=== PATIENT | female | born 1965 | race Caucasian/White ===

== ENCOUNTER 2020-02-21 08:59 | Outpatient (CLI) | payer BC, SELFPAY ==
--- NOTE | ~2020-02-21 | XR_ITS ---
XR tibia fibula RT 2V 02/21/2020 09:28 INDICATION: Right leg swelling for 2 years PROCEDURE: 2 views right tibia/fibula COMPARISON: No prior studies for comparison. FINDINGS: Fracture, dislocation or subluxation is not identified. The soft tissues appear within norm al limits. No foreign bodies are identified. IMPRESSION: 1: NO SIGNIFICANT BONE OR JOINT ABNORMALITY IDENTIFIED. Reviewed, dictated and finalized at location A.
--- NOTE | ~2020-02-21 | XR_ITS ---
XR foot RT min 3V 02/21/2020 09:29 Indication: Right foot swelling for 2 years Procedure: 4 views right foot Comparison: No prior studies for comparison. Findings: No acute fracture, subluxation or dislocation. Mild osteoarthritis first MTP joint. Lisfran c joint intact. No focal soft tissue abnormality. Small degenerative calcaneal enthesophytes. No fore ign bodies. Impression: 1: No significant bone or joint abnormality. Reviewed, dictated and finalized at location A. Impression: 1: No significant bone or joint abnormality.
== END 2020-02-21 09:00 | disposition home or self-care (01) ==
LOC: ANHLAB 09:07
PROVIDERS: PCP Nurse Practitioner Family; Visit Provider Nurse Practitioner Family
DX: R22.41 Localized swelling, mass and lump, right lower limb (principal)
CPT/HCPCS: 73590; 73630

== ENCOUNTER 2021-06-18 19:50 | Emergency (ER) | payer BC, SELFPAY ==
--- NOTE | ~2021-06-18 | XR_ITS ---
EXAMINATION: XR chest 2V DATE: 06/18/2021 21:26 INDICATION: 2 days of cough and worsening shortness of breath TECHNIQUE: PA and lateral views of the chest were obtained. COMPARISON: None FINDINGS: Opacity in the right middle lobe which is suspicious for pneumonia. Small right pleural effusion. Pos toperative change of prior left mastectomy with breast implant and associated left axillary lymph nod e dissection. Left lung is clear. No pneumothorax or left-sided pleural effusion. Cardiomediastinal s ilhouette is normal. Likely cholecystectomy clips in the upper abdomen. IMPRESSION: 1. Opacities in the right middle lobe concerning for pneumonia with small right pleural effusion. Reviewed, dictated and finalized at location A.
--- NOTE | ~2021-06-18 | CT_ITS ---
EXAMINATION: CT abdomen pelvis w con INDICATION: Upper abdominal pain, elevated liver function tests TECHNIQUE: Computed tomographic images of the abdomen and pelvis were obtained after the administrati on of 100 cc of Omnipaque 350 intravenous contrast. The dose-length product (DLP) was 489.78 mGy-cm. Automated exposure control and iterative reconstruction technique were employed. COMPARISON: None available FINDINGS: There are small pleural effusions, right greater than left. Cardiomegaly is noted. There is mild atelectasis of the lung bases. The gallbladder is surgically absent. The spleen, pancreas, and adrenal glands are normal. Cysts of the kidneys measure up to 1.5 cm on the left. No pathologically e nlarged abdominal or pelvic lymph nodes are identified. There is no free intraperitoneal gas or evide nce of bowel obstruction. There is mild inflammatory change adjacent to the third portion of the duod enum. A small volume of ascites tracks there is mild lumbar spondylosis. The appendix is normal. IMPRESSION: 1. Small amount of fluid adjacent to the duodenum possibly reflecting duodenitis. 2. Cardiomegaly. 3. Small pleural effusions. Reviewed, dictated and finalized at location A. IMPRESSION: 1. Small amount of fluid adjacent to the duodenum possibly reflecting duodeniti s. 2. Cardiomegaly. 3. Small pleural effusions.
--- NOTE | 2021-06-18 21:05 | ECG_ITS ---
Measurements Intervals [place] Rate: 106 P: 12 [place]: 132 QRS: -24 QRSD: 98 T: 82 QT: 349 QTc: 465 Interpretive Statements SINUS TACHYCARDIA POSSIBLE LEFT ATRIAL ENLARGEMENT CANNOT RULE OUT SEPTAL INFARCT, AGE INDETERMINATE BORDERLINE ST-T WAVE ABNORMALITY- LAT/HIGH LAT LEADS ABNORMAL ECG Electronically Signed On 06-19-2021 6:08:41 CDT by John Kitchen D.O.
[2021-06-18 21:06] VITALS: BP 138/82; PULSE 108; RESP 18; TEMP 36.7; O2SAT 99
[2021-06-18 21:39] LABS: Anion Gap 8 mmol/L (8-16); Blood Urea Nitrogen 18 mg/dL (7-17); Calcium 9.7 mg/dL (8.4-10.2); Carbon Dioxide 23 mmol/L (22-30); Chloride 107 mmol/L (98-107); Estimated Glomerular Filt Rate > 60; Glucose 107 mg/dL (65-110); Potassium 4.3 mmol/L (3.4-5.0); Sodium 138 mmol/L (137-145)
[2021-06-18 22:12] LABS: Basophils Absolute Auto 0.1 K/mm3 (0.0-0.1); Basophils Percent Auto 0.8 % (0.2-1.2); Eosinophils Absolute Auto 0.2 K/mm3 (0-0.3); Eosinophils Percent Auto 2.7 % (0-4.4); Hematocrit 36.1 % (37.0-47.0); Hemoglobin 11.4 g/dL (12.0-15.0); Immature Granulocyte Absolute 0.01 K/mm3 (0.00-0.031); Immature Granulocyte Percent A 0.1 % (0-0.5); Lymphocytes Absolute Auto 2.56 K/mm3 (0.9-3.2); Lymphocytes Percent Auto 34.9 % (18.3-44.2); Mean Corpuscular HGB Conc 31.6 g/dl (32-36); Mean Corpuscular Hemoglobin 29.7 pg (26-34); Mean Platelet Volume 10.4 fl (7.4-10.4); Monocytes Absolute Auto 0.7 K/mm3 (0.1-0.6); Monocytes Percent Auto 9.3 % (2.6-8.5); Neutrophils Absolute Auto 3.8 K/mm3 (1.3-6.7); Neutrophils Percent Auto 52.2 % (45.5-73.1); Platelet Count Result 321 k/mm3 (150-375); Red Blood Count 3.84 M/mm3 (4.2-5.4); White Blood Count 7.3 K/mm3 (4.5-10.0)
[2021-06-18 23:52] VITALS: BP 140/74; PULSE 100; RESP 18; O2SAT 97
[2021-06-19 01:53] VITALS: BP 130/84; PULSE 104; RESP 26; O2SAT 100
[2021-06-19 02:45] LABS: Alanine Aminotransferase 167 U/L (4-35); Albumin Level 3.7 g/dL (3.5-5.1); Alkaline Phosphatase 174 U/L (38-126); Aspartate Amino Transferase 141 U/L (14-36); Bilirubin,Total 0.4 mg/dL (0.2-1.3); Lipase 103 U/L (23-300)
[2021-06-19 02:48] VITALS: BP 133/94; PULSE 99; RESP 29
[2021-06-19] MEDS: BENZONATATE 100 MG CAPSULE 200 MG PO (02:49)
[2021-06-19] MEDS: IPRATROPIUM BR 0.02% INH SOLN 0.5 MG/2.5 ML VIAL INHALATION (02:52)
[2021-06-19] MEDS: ALBUTEROL SULFATE NEB 2.5 MG/0.5 ML INH 5 MG INHALATION (02:52)
--- NOTE | 2021-06-19 03:42 | PC.NURSE ---
Pt states her breathing has improved since treatment, but states she is still experiencing upper abdominal/epigastric pain. EDP made aware, no new orders at this time.
[2021-06-19 03:43] VITALS: BP 123/85; PULSE 102; RESP 28; O2SAT 100
[2021-06-19 04:58] VITALS: PULSE 96; RESP 27
--- NOTE | 2021-06-19 05:15 | PC.NURSE ---
Pt to CT via stretcher at this time.
[2021-06-19 05:23] VITALS: BP 136/93; PULSE 106; RESP 25; O2SAT 100
--- NOTE | 2021-06-19 05:56 | ED.GENADULT ---
HPI - General Adult General Chief complaint: Shortness of Breath/Dyspnea Stated complaint: SOB, abdominal pain Time Seen by Provider: 06/19/21 02:16 History of Present Illness HPI narrative: Patient 55-year-old female presents the emergency department chief complaint of cough and shortness of breath. Patient reports that for several days she has been having increasing shortness of breath has also been coughing reports that she has discomfort in her epigastric region. Patient reports that she has been tested for COVID-19 and that was negative at the reports that has been nonproductive and is feels as though she is cannot clear the material in her lungs. Patient reports not really had a fever with this denies peripheral edema denies prior cardiac history Related Data Allergies Allergy/AdvReac Type Severity Reaction Status Date / Time No Known Allergies Allergy Mild Verified 06/19/21 01:59 Review of Systems Review of Systems: A 10 system review of systems was completed on the patient and is negative except for what is stated in the HPI. Nursing and ancillary documentation was reviewed. Exam Narrative: GENERAL: Well-appearing, well-nourished, and in no acute distress. HEAD: Normocephalic, atraumatic. EYES: PERRLA and EOMI. ENT: Nares clear, no rhinorrhea or epistaxis. Mucous membranes moist. NECK: Supple. CHEST: Clear to auscultation. No respiratory distress. HEART: Regular rate and rhythm. No murmur heard. Normal peripheral pulses. ABDOMEN: Soft, tender to palpation in the epigastric region, nondistended, normal active bowel sounds. EXTREMITIES: Normal range of motion. No edema. SKIN: Warm, dry, no rash. NEURO: No focal deficits. Alert and oriented x3. PSYCH: Normal mood and affect. Course Vital Signs Vital signs: Vital Signs Temperature 36.7 C 06/18/21 21:06 Pulse Rate 108 H 06/18/21 21:06 Respiratory Rate 18 06/18/21 21:06 Blood Pressure 138/82 06/18/21 21:06 Pulse Oximetry 99 06/18/21 21:06 Temperature 36.7 C 06/18/21 21:06 Pulse Rate 106 H 06/19/21 05:23 Respiratory Rate 25 H 06/19/21 05:23 Blood Pressure 136/93 H 06/19/21 05:23 Pulse Oximetry 100 06/19/21 05:23 Medical Decision Making Vital Signs Vital Signs: Vital Signs Temperature 36.7 C 06/18/21 21:06 Pulse Rate 108 H 06/18/21 21:06 Respiratory Rate 18 06/18/21 21:06 Blood Pressure 138/82 06/18/21 21:06 Pulse Oximetry 99 06/18/21 21:06 Temperature 36.7 C 06/18/21 21:06 Pulse Rate 106 H 06/19/21 05:23 Respiratory Rate 25 H 06/19/21 05:23 Blood Pressure 136/93 H 06/19/21 05:23 Pulse Oximetry 100 06/19/21 05:23 Lab Data Result diagrams: 06/18/21 21:19 06/18/21 21:19 Labs: Lab Results 06/18/21 06/18/21 06/18/21 Range/Units 21:18 21:19 21:19 WBC 7.3 (4.5-10.0) K/mm3 RBC 3.84 L (4.2-5.4) M/mm3 Hgb 11.4 L (12.0-15.0) g/dL Hct 36.1 L (37.0-47.0) % MCV 94.0 (80-100) fl MCH 29.7 (26-34) pg MCHC 31.6 L (32-36) g/dl RDW 14.0 (11.5-14.5) % Plt Count 321 (150-375) k/mm3 MPV 10.4 (7.4-10.4) fl Immature Gran % (Auto) 0.1 (0-0.5) % Neut % (Auto) 52.2 (45.5-73.1) % Lymph % (Auto) 34.9 (18.3-44.2) % [place] % (Auto) 9.3 H (2.6-8.5) % Eos % (Auto) 2.7 (0-4.4) % Baso % (Auto) 0.8 (0.2-1.2) % Lymph # (Auto) 2.56 (0.9-3.2) K/mm3 [place] # (Auto) 0.7 H (0.1-0.6) K/mm3 Eos # (Auto) 0.2 (0-0.3) K/mm3 Baso # (Auto) 0.1 (0.0-0.1) K/mm3 Abs Immat Gran (auto) 0.01 (0.00-0.031) K/mm3 Absolute Neuts (auto) 3.8 (1.3-6.7) K/mm3 Absolute Nucleated RBC 0.0 (0.0-0.012) K/mm3 Nucleated RBC % 0.0 (0.0-0.2) % Sodium 138 (137-145) mmol/L Potassium 4.3 (3.4-5.0) mmol/L Chloride 107 (98-107) mmol/L Carbon Dioxide 23 (22-30) mmol/L Anion Gap 8 (8-16) mmol/L BUN 18 H (7-17) mg/dL Creatinine 0.90 (0.7-1.0) mg/dL Estim Creat Clear Ca
[2021-06-19 06:25] VITALS: BP 133/93; PULSE 93; RESP 28; O2SAT 100
== END 2021-06-19 06:30 | disposition home or self-care (01) ==
PROVIDERS: Emergency Medicine; Emergency Provider Emergency Medicine; PCP Nurse Practitioner Family
DX: J18.9 Pneumonia, unspecified organism (principal); K29.80 Duodenitis without bleeding; R00.0 Tachycardia, unspecified; R94.31 Abnormal electrocardiogram [ECG] [EKG]; I51.7 Cardiomegaly
CPT/HCPCS: 36415; 71046; 74177; 80048; 80076; 83690; 85025; 93005; 94640; 99284; A9270; Q9967